=== PATIENT | male | born 1945 | race Caucasian/White ===

== ENCOUNTER 2024-08-02 21:09 | Inpatient (IN) | payer MEDICARE ==
[~2024-08-02] VITALS: Ht 186.7 cm; Wt 99.3 kg
[2024-08-02] MEDS ORDERED: Magnesium 1GM/D5W 100ML PREMIX 100 ML IV ONE ×2 (21:23→21:41)
[2024-08-02] MEDS ORDERED: methylPREDNISolone SOD SUCC 125 MG/2ML VIAL ONE (21:23)
[2024-08-02] MEDS: Magnesium 1GM/D5W 100ML PREMIX 200 ML IV ONE (21:30)
[2024-08-02] MEDS: methylPREDNISolone SOD SUCC 125 MG/2ML VIAL IV ONE (21:30)
[2024-08-02 21:31] VITALS: O2SAT 93
[2024-08-02] MEDS: IPRATROPIUM NEB FS 0.5 MG/2.5 ML AMPUL.NEB NEB ONE (21:31)
[2024-08-02] MEDS: ALBUTEROL FS 2.5 MG/3 ML VIAL.NEB NEB ONE (21:32)
[2024-08-02] MEDS ORDERED: ALBUTEROL FS 2.5 MG/3 ML VIAL.NEB ONE (21:37)
[2024-08-02] MEDS ORDERED: IPRATROPIUM NEB FS 0.5 MG/2.5 ML AMPUL.NEB ONE (21:37)
[2024-08-02 21:47] LABS: BASOPHILS # (AUTO) 0.1 K/uL (0.0-0.2); BASOPHILS % (AUTO) 0.4 % (0.0-2.0); EOSINOPHILS # (AUTO) 0.2 K/uL (0.0-0.7); EOSINOPHILS % (AUTO) 1.4 % (0.0-6.0); HEMATOCRIT 34 % (39-51); HEMOGLOBIN 11.6 g/dL (13.5-17.5); LYMPHOCYTES # (AUTO) 1.7 K/uL (0.8-4.8); MEAN CORPUSCULAR HEMOGLOBIN 28 PG (26.0-33.0); MEAN CORPUSCULAR HGB CONC 34 g/dl (31.0-36.0); MEAN CORPUSCULAR VOLUME 84 fL (80-96); MONOCYTES # (AUTO) 0.7 K/uL (0.1-1.30); MONOCYTES % (AUTO) 4.7 % (2.0-12.0); NEUTROPHILS # (AUTO) 11.6 K/uL (1.8-8.9); NEUTROPHILS % (AUTO) 81.5 % (43.0-81.0); PLATELET COUNT (AUTO) 234 K/uL (150-450); RED BLOOD CELL COUNT(AUTO) 4.08 MIL/uL (4.5-6.0); RED CELL DISTRIBUTION WIDTH 14.3 % (11.5-15.0); WHITE BLOOD COUNT (AUTO) 14.3 K/uL (4.3-11.0)
[2024-08-02 21:53] LABS: CALCIUM, SERUM 9.3 mg/dL (8.5-10.1); CARBON DIOXIDE 26 mmol/L (21-32); CHLORIDE 104 mmol/L (98-107); CREATININE 2.8 mg/dL (0.6-1.3); GLUCOSE 221 mg/dL (74-106); POTASSIUM 4.1 mmol/L (3.5-5.1); SODIUM SERUM 141 mmol/L (136-145); UREA NITROGEN, BLOOD 29 mg/dL (7-18)
[2024-08-02 22:06] LABS: NT-PRO BNP 2065 pg/mL (0-125)
[2024-08-02] MEDS ORDERED: ASPIRIN 325 MG TABLET ONE (22:28)
[2024-08-02] MEDS: ASPIRIN 325 MG TABLET PO ONE (22:30)
[2024-08-02 22:32] VITALS: O2SAT 98
[2024-08-02 23:16] LABS: APPEARANCE,URINE CLEAR (CLEAR); BILIRUBIN,URINE 1+ (NEGATIVE); BLOOD, URINE TRACE-INTA Ery/uL (NEGATIVE); COLOR,URINE YELLOW (YELLOW); KETONES,URINE TRACE mg/dL (NEGATIVE); LEUKOCYTE ESTERASE ,URINE NEGATIVE (NEGATIVE); NITRITE, URINE NEGATIVE (NEGATIVE); PROTEIN,URINE 3+ mg/dl (NEGATIVE); UGLUCOSE NEGATIVE (NEGATIVE); UROBILINOGEN,URINE 0.2 EU/dL (0.2)
[2024-08-02 23:28] LABS: ADD URINE CULTURE YES; WBC,URINE 0-2 /HPF (0-3)
[2024-08-02 23:29] LABS: URINE AMORPHOUS URATE Few /HPF (None Seen)
[2024-08-02 23:30] LABS: MUCUS,URINE Few /LPF (None Seen)
[2024-08-02] MEDS ORDERED: ALBUTEROL FS 2.5 MG/3 ML VIAL.NEB NEB PRN (23:30)
[2024-08-02] MEDS ORDERED: ONDANSETRON HCL/PF 4 MG/2 ML VIAL IVP PRN (23:30)
[2024-08-02] MEDS ORDERED: ACETAMINOPHEN 325 MG TABLET PO PRN (23:30)
[2024-08-02] MEDS ORDERED: NITROGLYCERIN 0.4 MG/TAB BOTTLE SL PRN (23:30)
[2024-08-02] MEDS ORDERED: MAGNESIUM HYDROXIDE 30 ML UDC PO PRN (23:30)
[2024-08-02] MEDS ORDERED: IPRATROPIUM NEB FS 0.5 MG/2.5 ML AMPUL.NEB NEB PRN (23:30)
[2024-08-02] MEDS ORDERED: DEXTROSE 50%-WATER 50 ML DISP.SYRIN IV PRN (23:30)
[2024-08-02] MEDS ORDERED: Z GUARD REMEDY 4 OZ OINT TP PRN (23:30)
[2024-08-02] MEDS ORDERED: MAG HYDROX/AL HYDROX/SIMETH 30 ML UDC PO PRN (23:30)
[2024-08-02 23:31] LABS: BACTERIA,URINE 3+ /HPF (None Seen)
[2024-08-02 23:32] VITALS: O2SAT 99
[2024-08-03] VITALS (10 sets, daily range): BP systolic 95–120; BP diastolic 61–80; TEMP 97.3–98.2; O2SAT 90–99
[2024-08-03] MEDS ORDERED: KRIL1CAP21 PO (00:39)
[2024-08-03] MEDS ORDERED: FINA5TAB4 PO (00:39)
[2024-08-03] MEDS ORDERED: HYDR-4076 PO (00:39)
[2024-08-03] MEDS ORDERED: LABE200T5 PO (00:39)
[2024-08-03] MEDS ORDERED: SIMV-46 PO (00:39)
[2024-08-03] MEDS ORDERED: SODI10PO PO (00:39)
[2024-08-03] MEDS ORDERED: CHOL500062 PO (00:39)
[2024-08-03] MEDS ORDERED: TAMS-12 PO (00:39)
[2024-08-03] MEDS ORDERED: ASPI-1169 PO (00:39)
[2024-08-03] MEDS ORDERED: VALS80TA2 PO (00:39)
[2024-08-03] MEDS ORDERED: OMEG1CAP PO (00:39)
[2024-08-03] MEDS: methylPREDNISolone SOD SUCC 40 MG/ML VIAL IV SCH (05:24)
[2024-08-03] MEDS: BLOOD SUGAR DIAGNOSTIC 1 EACH STRIP IN SCH (06:09)
[2024-08-03 06:45] LABS: BASOPHILS % (AUTO) 0.2 % (0.0-2.0); EOSINOPHILS % (AUTO) 0.1 % (0.0-6.0); HEMATOCRIT 34 % (39-51); HEMOGLOBIN 11.5 g/dL (13.5-17.5); LYMPHOCYTES # (AUTO) 0.7 K/uL (0.8-4.8); LYMPHOCYTES % (AUTO) 6.8 % (20.0-44.0); MEAN CORPUSCULAR HEMOGLOBIN 29 PG (26.0-33.0); MEAN CORPUSCULAR HGB CONC 34 g/dl (31.0-36.0); MEAN CORPUSCULAR VOLUME 84 fL (80-96); MONOCYTES # (AUTO) 0.2 K/uL (0.1-1.30); MONOCYTES % (AUTO) 1.9 % (2.0-12.0); PLATELET COUNT (AUTO) 198 K/uL (150-450); RED CELL DISTRIBUTION WIDTH 14.2 % (11.5-15.0)
[2024-08-03 06:56] LABS: CALCIUM, SERUM 8.8 mg/dL (8.5-10.1); CARBON DIOXIDE 27 mmol/L (21-32); CHLORIDE 107 mmol/L (98-107); CREATININE 3.9 mg/dL (0.6-1.3); GLUCOSE 218 mg/dL (74-106); PHOSPHORUS 4.6 mg/dL (2.5-4.9); POTASSIUM 4.9 mmol/L (3.5-5.1); SODIUM SERUM 143 mmol/L (136-145); UREA NITROGEN, BLOOD 36 mg/dL (7-18)
[2024-08-03] MEDS: INSULIN REGULAR, HUMAN 100 UNIT/ML 3 ML VIAL SQ PRN (07:43)
[2024-08-03] MEDS ORDERED: KRIL1CAP31 PO (08:03)
[2024-08-03] MEDS ORDERED: DILT180C49 PO (08:03)
[2024-08-03] MEDS: ASPIRIN 81 MG TAB.CHEW PO SCH (08:07)
[2024-08-03] MEDS: PANTOPRAZOLE 40 MG TABLET.DR PO SCH (08:07)
[2024-08-03] MEDS: LEVOFLOXACIN (250MG) 250 MG TABLET PO SCH (09:41)
[2024-08-03] MEDS ORDERED: ASPIRIN 81 MG TAB.CHEW PO SCH (10:00)
[2024-08-03] MEDS: SIMVASTATIN 20 MG TABLET PO SCH (10:35)
[2024-08-03] MEDS: FINASTERIDE (5 MG) 5 MG TABLET PO SCH (10:35)
[2024-08-03] MEDS: TAMSULOSIN 0.4 MG CAP.SR.24H PO SCH (10:35)
[2024-08-03] MEDS: hydrALAZINE HCL 25 MG TABLET PO SCH (10:36)
[2024-08-03] MEDS: DILTIAZEM HCL CD 180 MG PO SCH (10:36)
[2024-08-03] MEDS: SODIUM ZIRCONIUM CYCLOSILICATE 10 GM POWD.PACK PO SCH (10:38)
[2024-08-03] MEDS: CHOLECALCIFEROL 1,000 UNIT TABLET (VIT D3) PO SCH (11:42)
[2024-08-03] MEDS: ALBUTEROL FS 2.5 MG/3 ML VIAL.NEB NEB SCH (14:58)
[2024-08-03] MEDS: IPRATROPIUM NEB FS 0.5 MG/2.5 ML AMPUL.NEB NEB SCH (14:58)
[2024-08-03 20:26] LABS: CALCIUM, SERUM 9.3 mg/dL (8.5-10.1); CARBON DIOXIDE 25 mmol/L (21-32); CHLORIDE 105 mmol/L (98-107); CREATININE 5.2 mg/dL (0.6-1.3); GLUCOSE 193 mg/dL (74-106); POTASSIUM 4.9 mmol/L (3.5-5.1); SODIUM SERUM 140 mmol/L (136-145); UREA NITROGEN, BLOOD 49 mg/dL (7-18)
[2024-08-03] MEDS: LABETALOL HCL (100MG) 100 MG TABLET PO SCH (21:20)
[2024-08-04] VITALS (15 sets, daily range): BP systolic 97–127; BP diastolic 65–76; TEMP 97.3–97.8; O2SAT 89–96
[2024-08-04] MEDS ORDERED: IV NS 0.9% 1,000 ML IV PRN (06:30)
[2024-08-04] MEDS: CHOLECALCIFEROL 1,000 UNIT TABLET (VIT D3) PO SCH (08:29)
[2024-08-04] MEDS ORDERED: VALSARTAN 80 MG TABLET PO SCH (09:00)
[2024-08-04] MEDS: methylPREDNISolone SOD SUCC 40 MG/ML VIAL IV SCH (10:04)
[2024-08-04 10:16] LABS: BASOPHILS % (AUTO) 0.1 % (0.0-2.0); HEMATOCRIT 35 % (39-51); HEMOGLOBIN 11.6 g/dL (13.5-17.5); LYMPHOCYTES # (AUTO) 0.8 K/uL (0.8-4.8); LYMPHOCYTES % (AUTO) 4.1 % (20.0-44.0); MEAN CORPUSCULAR HEMOGLOBIN 28 PG (26.0-33.0); MEAN CORPUSCULAR HGB CONC 33 g/dl (31.0-36.0); MEAN CORPUSCULAR VOLUME 85 fL (80-96); MONOCYTES # (AUTO) 0.8 K/uL (0.1-1.30); MONOCYTES % (AUTO) 4.1 % (2.0-12.0); NEUTROPHILS # (AUTO) 17.6 K/uL (1.8-8.9); NEUTROPHILS % (AUTO) 91.7 % (43.0-81.0); PLATELET COUNT (AUTO) 228 K/uL (150-450); RED CELL DISTRIBUTION WIDTH 14.8 % (11.5-15.0); WHITE BLOOD COUNT (AUTO) 19.2 K/uL (4.3-11.0)
[2024-08-04 10:41] LABS: APPEARANCE,URINE SLIGHTLY CLOUDY (CLEAR); BILIRUBIN,URINE 1+ (NEGATIVE); BLOOD, URINE NEGATIVE Ery/uL (NEGATIVE); COLOR,URINE DARK YELLOW (YELLOW); KETONES,URINE TRACE mg/dL (NEGATIVE); LEUKOCYTE ESTERASE ,URINE TRACE (NEGATIVE); NITRITE, URINE NEGATIVE (NEGATIVE); PROTEIN,URINE 3+ mg/dl (NEGATIVE); UGLUCOSE NEGATIVE (NEGATIVE); UROBILINOGEN,URINE 0.2 EU/dL (0.2)
[2024-08-04 10:48] LABS: ADD URINE CULTURE YES; BACTERIA,URINE 1+ /HPF (None Seen); WBC,URINE 21-50 /HPF (0-3)
[2024-08-04 10:51] LABS: ALANINE AMINOTRANSFERASE 194 U/L (12-78); ALBUMIN 3.8 g/dL (3.4-5.0); ALKALINE PHOSPHATASE 77 U/L (46-116); ASPARTATE AMINOTRANSFERASE 37 U/L (15-37); BILIRUBIN,TOTAL 0.6 mg/dL (0.2-1.0); CARBON DIOXIDE 22 mmol/L (21-32); CHLORIDE 100 mmol/L (98-107); CREATININE 6.1 mg/dL (0.6-1.3); GLUCOSE 210 mg/dL (74-106); MAGNESIUM 3.1 mg/dL (1.8-2.4); PHOSPHORUS 7.5 mg/dL (2.5-4.9); POTASSIUM 4.1 mmol/L (3.5-5.1); SODIUM SERUM 138 mmol/L (136-145); TOTAL PROTEIN, SERUM 7.2 g/dL (6.4-8.2); UREA NITROGEN, BLOOD 64 mg/dL (7-18)
[2024-08-04 11:48] LABS: EOSINOPHIL,URINE None Seen
[2024-08-04 11:56] LABS: CREATININE, URINE 306.6 MG/DL (30.0-125.0)
[2024-08-04 22:44] LABS: HDL CHOLESTEROL 54 mg/dL (40-60); TRIGLYCERIDES 67 mg/dL (30-150)
[2024-08-04 22:45] LABS: CHOLESTEROL 129 mg/dL (<200); LDL 64 mg/dL (0-99)
[2024-08-04 22:47] LABS: THYROID STIMULATING HORMONE 1.795 uIU/mL (0.358-3.74)
[2024-08-05 00:43] LABS: CREATINE KINASE, TOTAL 315 U/L (39-308)
[2024-08-05 01:31] VITALS: O2SAT 91
[2024-08-05 01:36] LABS: URINE TOTAL PROTEIN 1.2 mg/dL (0-11.9)
[2024-08-05 01:46] VITALS: O2SAT 96
[2024-08-05 02:46] LABS: ABG BASE EXCESS -9.4 mmol/L (-2.0-3.0); ABG OXYGEN SATURATION 18.2 % (94.0-98.0); ABG PCO2 37.2 mmHg (35.0-48.0); ABG PO2 19.1 mmHg (83.0-108.0); ABG TOTAL HEMOGLOBIN 11.1 G/dL (13.5-17.5); COHb 0.2 % (0.5-1.5); MetHb 1.7 % (0.0-1.5); O2Hb 17.9 % (94.0-97.0); SITE, ABG LEFT BRACHIAL
[2024-08-05 02:50] VITALS: BP 90/65; TEMP 96.9; O2SAT 92
[2024-08-05] MEDS: NOREPINEPHRINE 8 MG in IV D5W 242 ML IV PRN (03:17)
[2024-08-05 03:24] VITALS: BP 0/0
[2024-08-05] MEDS ORDERED: PHENYLEPHRINE 10 MG/ML VIAL ONE (03:28)
[2024-08-05] MEDS ORDERED: ETOMIDATE 2 MG/ML VIAL IV ONE (03:40)
[2024-08-05] MEDS ORDERED: EPINEPHRINE (1:10,000) SYRINGE 1 MG/10 ML DISP.SYRIN IVP ONE (03:40)
[2024-08-05] MEDS ORDERED: MEROPENEM 500 MG in IV NS 0.9% 50 ML IV ONE (04:00)
[2024-08-05] MEDS ORDERED: MEROPENEM 500 MG in IV NS 0.9% 50 ML IV SCH (04:00)
[2024-08-05] MEDS ORDERED: hydrALAZINE HCL 25 MG TABLET PO SCH (09:00)
[2024-08-05 12:08] LABS: PTH, INTACT 127 pg/mL (15-65)
[2024-08-05] MEDS ORDERED: SIMVASTATIN 20 MG TABLET PO SCH (22:00)
[2024-08-05] MEDS ORDERED: ASPIRIN 81 MG TAB.CHEW PO SCH (22:00)
[2024-08-10 05:09] LABS: *SPE A/G RATIO 1.3 (0.7-1.7); *SPE ALBUMIN 3.7 g/dL (2.9-4.4); *SPE ALPHA-1-GLOBULIN 0.4 g/dL (0.0-0.4); *SPE ALPHA-2-GLOBULIN 0.9 g/dL (0.4-1.0); *SPE GLOBULIN, TOTAL 2.9 g/dL (2.2-3.9); *SPE M-SPIKE Not Observed g/dL (Not Observed); *SPE PROTEIN TOTAL 6.6 g/dL (6.0-8.5); *SPEGAMMA GLOBULIN 0.6 g/dL (0.4-1.8)
== END 2024-08-05 03:41 | DRG 190 ==
LOC: ER 21:42 → TELE 23:30 → ICU 08-05 03:05
PROVIDERS: ADMIT Nurse Practitioner Acute Care; ATTEND Nurse Practitioner Acute Care
PROC: 5A09357 Assistance with Respiratory Ventilation, Less than 24 Consecutive Hours, Continuous Positive Airway Pressure (ICD-10-PCS; 2024-08-04)
PROC: 5A12012 Performance of Cardiac Output, Single, Manual (ICD-10-PCS; principal; 2024-08-05)
PROC: 0BH18EZ Insertion of Endotracheal Airway into Trachea, Via Natural or Artificial Opening Endoscopic (ICD-10-PCS; 2024-08-05)
DX: J44.1 Chronic obstructive pulmonary disease with (acute) exacerbation (principal); I21.A1 Myocardial infarction type 2; J96.01 Acute respiratory failure with hypoxia; I50.30 Unspecified diastolic (congestive) heart failure; I13.0 Hypertensive heart and chronic kidney disease with heart failure and stage 1 through stage 4 chronic kidney disease, or unspecified chronic kidney disease; N17.9 Acute kidney failure, unspecified; N39.0 Urinary tract infection, site not specified; E66.9 Obesity, unspecified; E78.5 Hyperlipidemia, unspecified; Z87.891 Personal history of nicotine dependence; Z88.0 Allergy status to penicillin; N40.1 Benign prostatic hyperplasia with lower urinary tract symptoms; Z85.51 Personal history of malignant neoplasm of bladder; E11.65 Type 2 diabetes mellitus with hyperglycemia; Z68.28 Body mass index [BMI] 28.0-28.9, adult; Z86.79 Personal history of other diseases of the circulatory system; Z95.828 Presence of other vascular implants and grafts; E11.22 Type 2 diabetes mellitus with diabetic chronic kidney disease; N18.9 Chronic kidney disease, unspecified; Z20.822 Contact with and (suspected) exposure to COVID-19
CPT/HCPCS: 36415; 71045-TC; 76770-TC; 80048-TC; 80053-TC; 80061-TC; 81001; 82550-TC; 82553; 82570-TC; 82962-TC; 83735-TC; 83880; 83970; 84100-TC; 84155; 84165; 84300-TC; 84443-TC; 84484-TC; 85025-TC; 87081-TC; 87086-TC; 92950-TC; 93307-TC; 94761-TC; 94799-TC; 97110-TC; 97116-TC; 97530-TC; 97535-TC; 99082-TC; A4223; G0378; J0171; J1815; J2185; J2919; J3475; J3490